=== PATIENT | female | born 1950 | race African-American/Black ===

== ENCOUNTER → 2016-06-30 | Outpatient (CLI) | payer MEDICARE, MEDICAID ==
[~2016-06-30] MED LIST: B50 PO; CLOB20TA PO; LACO200T2 PO; MIRT-91 PO; PHEN32.418 PO; PHENYTOIN PO; ZYPREXA PO
== END | disposition home or self-care (01) ==
LOC: CARD 08:55
PROVIDERS: ATTEND Psychiatry & Neurology Neurology
DX: G40.319 Generalized idiopathic epilepsy and epileptic syndromes, intractable, without status epilepticus (principal)

== ENCOUNTER 2018-02-05 12:39 | Inpatient (IN) | payer MEDICARE, MEDICAID ==
[~2018-02-05] VITALS: Ht 175.3 cm; Wt 60.8 kg
[~2018-02-05 12:39] MED LIST changes: -PHEN32.418 PO; +PHEN32.43 PO
[2018-02-05] MEDS ORDERED: SODIUM CHLORIDE 0.9% 1,000 ML IV ONE (13:00)
[2018-02-05] MEDS ORDERED: HALOPERIDOL LACTATE 5MG/ML VIAL IM ONE ×2 (15:00→16:15)
[2018-02-05 15:16] LABS: BASOPHILS % 0.9 % (0.0-2.0); EOSINOPHILS % 3.4 % (0.0-5.0); HEMATOCRIT. 36.2 % (36.0-48.0); HEMOGLOBIN. 11.6 g/dL (12.0-16.0); MEAN CORPUSCULAR HEMOGLOBIN 27.9 pg (28.0-32.0); MEAN CORPUSCULAR VOLUME 86.7 fL (81.0-99.0); MONOCYTES % 7.9 % (2.0-8.0); NEUTROPHILS % 55.8 % (40.0-76.0); PLATELET 121 x1000/uL (130-400); RED BLOOD CELL COUNT 4.17 mill/uL (4.2-5.4); RED CELL DISTRIBUTION WIDTH 15.9 % (11.6-14.6)
[2018-02-05 15:20] LABS: CHLORIDE 119 mEq/L (98-107); INR 1.1; PROTHROMBIN TIME 11.5 sec (9.1-11.1)
[2018-02-05 15:24] LABS: ETHANOL BLOOD < 10 mg/dL
[2018-02-05 15:45] LABS: CREATINE KINASE 242 IU/L (26-192)
[2018-02-05 16:34] LABS: CLARITY URINE CLEAR (CLEAR); COLOR URINE YELLOW (YELLOW); KETONES URINE NEGATIVE (NEGATIVE); LEUKOCYTE ESTERASE URINE NEGATIVE (NEGATIVE); NITRITE URINE NEGATIVE (NEGATIVE); OCCULT BLOOD URINE NEGATIVE (NEGATIVE); PH URINE 5.5 (4.5-8.0); PROTEIN URINE NEGATIVE (NEGATIVE); SPECIFIC GRAVITY URINE 1.025 (1.005-1.030); UROBILINOGEN URINE 0.2 E.U./dL (0.2-1.0)
[2018-02-05 16:46] LABS: *AMPHETAMINES SCREEN URINE NEGATIVE (NEGATIVE); *BARBITURATES SCREEN URINE NEGATIVE (NEGATIVE); *BENZODIAZEPINES SCREEN URINE NEGATIVE (NEGATIVE); *COCAINE SCREEN URINE NEGATIVE (NEGATIVE); CANNABINOID URINE SCREEN NEGATIVE (NEGATIVE); PHENCYCLIDINE URINE SCREEN NEGATIVE (NEGATIVE)
[2018-02-05 16:47] LABS: METHADONE URINE SCREEN NEGATIVE (NEGATIVE); OPIATES URINE SCREEN NEGATIVE (NEGATIVE)
[2018-02-05] MEDS ORDERED: ONDANSETRON HCL 4MG/2ML INJ IV PRN (20:30)
[2018-02-05] MEDS ORDERED: LORAZEPAM 2MG/ML CPJ IV PRN (20:30)
[2018-02-05] MEDS ORDERED: CLONIDINE 0.1MG TABLET PO PRN (20:30)
[2018-02-05] MEDS ORDERED: MAGNESIUM/ALUMINUM HYDROXIDE/SIMETHICONE 30ML UDC PO PRN (20:30)
[2018-02-05] MEDS ORDERED: DIPHENHYDRAMINE 50MG/ML VIAL IV PRN (20:30)
[2018-02-05] MEDS ORDERED: ACETAMINOPHEN 325MG TABLET PO PRN (20:30)
[2018-02-05] MEDS ORDERED: IPRATROPIUM/ALBUTEROL 0.5-3(2.5)MG/3ML NEB INH PRN (20:30)
[2018-02-05 21:50] VITALS: BP 127/78
[2018-02-05] MEDS: DIVALPROEX SODIUM 250MG DR TABLET PO SCH (22:07)
[2018-02-05] MEDS: MIRTAZAPINE 15MG TABLET PO SCH (22:07)
[2018-02-05] MEDS: TOPIRAMATE 25MG TABLET PO SCH (22:07)
[2018-02-06] VITALS: BP 112/68
[2018-02-06] MEDS: SODIUM CHLORIDE 0.9% INJ 3ML FLUSH IVF SCH ×4 (00:45→22:00)
[2018-02-06] MEDS: OLANZAPINE 10 MG/VIAL IM SCH ×2 (00:45→21:00)
[2018-02-06] MEDS: IPRATROPIUM/ALBUTEROL 0.5-3(2.5)MG/3ML NEB HHN SCH ×2 (01:10→21:07)
[2018-02-06] MEDS ORDERED: LORA10CA MT (02:47)
[2018-02-06] MEDS ORDERED: DIVA-73 MT (02:47)
[2018-02-06] MEDS ORDERED: CALC-769 MT (02:47)
[2018-02-06] MEDS ORDERED: [UNRECOGNIZED DRUG - CODE] MT (02:47)
[2018-02-06] MEDS ORDERED: LACO100T2 MT (02:47)
[2018-02-06] MEDS ORDERED: MIRT15TA MT (02:47)
[2018-02-06] MEDS ORDERED: LIPA1CAP18 MT (02:47)
[2018-02-06] MEDS ORDERED: DIPH25CA83 MT (02:47)
[2018-02-06] MEDS ORDERED: TOPI50TA24 MT (02:47)
[2018-02-06 04:45] VITALS: BP 97/61
[2018-02-06 07:58] VITALS: BP 112/67
[2018-02-06] MEDS: TOPIRAMATE 25MG TABLET PO SCH ×2 (09:24→21:35)
[2018-02-06] MEDS: CHOLECALCIFEROL (VIT D3) 400 UNIT TABLET PO SCH (09:24)
[2018-02-06] MEDS: LIPASE/PROTEASE/AMYLASE 4,200/14,200/24,600 UNITS CAP DR PO SCH ×3 (09:25→17:59)
[2018-02-06] MEDS: DIVALPROEX SODIUM 250MG DR TABLET PO SCH ×2 (09:25→22:15)
[2018-02-06] MEDS: CALCIUM CARBONATE 1250MG TABLET (500MG ELEMENTAL CALCIUM) PO SCH (09:25)
[2018-02-06 12:08] VITALS: BP 120/70
[2018-02-06] MEDS: THIAMINE HCL 100MG TABLET PO SCH ×2 (12:59→17:59)
[2018-02-06] MEDS ORDERED: NON FORMULARY PATIENT HOME MED EA XX SCH (15:00)
[2018-02-06 15:46] VITALS: BP 127/69
[2018-02-06] MEDS: PENICILLIN V POTASSIUM 250MG TABLET PO SCH ×2 (16:47→18:00)
[2018-02-06 20:00] VITALS: BP 127/67
[2018-02-06] MEDS ORDERED: LACOSAMIDE 200 MG TABLET (VIMPAT) PO SCH (21:00)
[2018-02-06] MEDS: PHENYTOIN SODIUM EXTENDED 100MG CAPSULE PO SCH (21:34)
[2018-02-06] MEDS: MIRTAZAPINE 15MG TABLET PO SCH (21:35)
[2018-02-06] MEDS: LACOSAMIDE 200 MG TABLET (VIMPAT) PO SCH (23:20)
[2018-02-07] VITALS: BP 126/81
[2018-02-07] MEDS: IPRATROPIUM/ALBUTEROL 0.5-3(2.5)MG/3ML NEB HHN SCH ×4 (02:02→21:28)
[2018-02-07 04:00] VITALS: BP 129/74
[2018-02-07] MEDS: SODIUM CHLORIDE 0.9% INJ 3ML FLUSH IVF SCH ×3 (06:00→21:40)
[2018-02-07] MEDS: PENICILLIN V POTASSIUM 250MG TABLET PO SCH ×3 (06:04→13:48)
[2018-02-07 08:25] VITALS: BP 111/70
[2018-02-07] MEDS: TOPIRAMATE 25MG TABLET PO SCH ×2 (10:29→21:39)
[2018-02-07] MEDS: LIPASE/PROTEASE/AMYLASE 4,200/14,200/24,600 UNITS CAP DR PO SCH ×2 (10:29→13:48)
[2018-02-07] MEDS: LACOSAMIDE 200 MG TABLET (VIMPAT) PO SCH ×2 (10:29→21:39)
[2018-02-07] MEDS: CHOLECALCIFEROL (VIT D3) 400 UNIT TABLET PO SCH (10:29)
[2018-02-07] MEDS: THIAMINE HCL 100MG TABLET PO SCH (10:30)
[2018-02-07] MEDS: DIVALPROEX SODIUM 250MG DR TABLET PO SCH ×2 (10:30→21:39)
[2018-02-07] MEDS: CALCIUM CARBONATE 1250MG TABLET (500MG ELEMENTAL CALCIUM) PO SCH (10:30)
[2018-02-07 12:56] VITALS: BP 115/73
[2018-02-07 17:22] VITALS: BP 104/65
[2018-02-07] MEDS ORDERED: PHENYTOIN SODIUM EXTENDED 100MG CAPSULE PO NR (17:45)
[2018-02-07 20:00] VITALS: BP 105/67
[2018-02-07] MEDS: OLANZAPINE 10 MG/VIAL IM SCH (21:38)
[2018-02-07] MEDS: PHENYTOIN SODIUM EXTENDED 100MG CAPSULE PO SCH (21:39)
[2018-02-07] MEDS: MIRTAZAPINE 15MG TABLET PO SCH (21:39)
[2018-02-08] VITALS: BP 105/64
[2018-02-08] MEDS: THIAMINE HCL 100MG TABLET PO SCH ×2 (00:14→08:43)
[2018-02-08] MEDS: IPRATROPIUM/ALBUTEROL 0.5-3(2.5)MG/3ML NEB HHN SCH ×3 (01:55→15:35)
[2018-02-08 04:00] VITALS: BP 107/66
[2018-02-08] MEDS: SODIUM CHLORIDE 0.9% INJ 3ML FLUSH IVF SCH ×2 (06:42→14:00)
[2018-02-08] MEDS: PENICILLIN V POTASSIUM 250MG TABLET PO SCH ×3 (06:42→12:44)
[2018-02-08 08:00] VITALS: BP 107/74
[2018-02-08] MEDS: LIPASE/PROTEASE/AMYLASE 4,200/14,200/24,600 UNITS CAP DR PO SCH ×3 (08:10→13:10)
[2018-02-08] MEDS: CHOLECALCIFEROL (VIT D3) 400 UNIT TABLET PO SCH (08:43)
[2018-02-08] MEDS: CALCIUM CARBONATE 1250MG TABLET (500MG ELEMENTAL CALCIUM) PO SCH (08:43)
[2018-02-08] MEDS: TOPIRAMATE 25MG TABLET PO SCH (08:43)
[2018-02-08] MEDS: LACOSAMIDE 200 MG TABLET (VIMPAT) PO SCH (08:43)
[2018-02-08] MEDS: DIVALPROEX SODIUM 250MG DR TABLET PO SCH (08:43)
[2018-02-08 12:00] VITALS: BP 105/67
[2018-02-08 15:52] VITALS: BP 105/60
[2018-02-08 16:00] VITALS: BP 112/65
[2018-02-08] MEDS ORDERED: PHENYTOIN SODIUM EXTENDED 100MG CAPSULE PO NR (17:00)
== END 2018-02-08 17:10 | disposition home or self-care (01) | DRG 101 ==
LOC: ER 12:39 → 7WST 15:52 → EDBEDREQ 15:57 → ENRESERV 19:39
PROVIDERS: ADMIT Internal Medicine; ATTEND Internal Medicine
PROC: 4A10X4Z Monitoring of Central Nervous Electrical Activity, External Approach (ICD-10-PCS; principal; 2018-02-08)
DX: G40.419 Other generalized epilepsy and epileptic syndromes, intractable, without status epilepticus (principal); F31.9 Bipolar disorder, unspecified; K86.89 Other specified diseases of pancreas; F17.210 Nicotine dependence, cigarettes, uncomplicated; Z88.6 Allergy status to analgesic agent; Z79.899 Other long term (current) drug therapy
CPT/HCPCS: 36415; 71045; 80165; 80185; 80305; 80339; 82140; 82550; 82962; 93005; 93970; 96360; 96361; 96372; 97162; 99285; G0482; J1630; J2060; J3490; J7030; J7620; A4315

== ENCOUNTER → 2018-05-31 | Outpatient (CLI) | payer MEDICARE, MEDICAID ==
[~2018-05-31] MED LIST changes: -B50 PO; +CALC-769 MT; -CLOB20TA PO; +DIPH25CA83 MT; +DIVA-73 MT; +LACO100T2 MT; -LACO200T2 PO; +LIPA1CAP18 MT; +LORA10CA MT; -MIRT-91 PO; +MIRT15TA MT; -PHEN32.43 PO; -PHENYTOIN PO; +TOPI50TA24 MT; -ZYPREXA PO; +[UNRECOGNIZED DRUG - CODE] MT
== END | disposition home or self-care (01) ==
LOC: CARD 09:00
PROVIDERS: ATTEND Psychiatry & Neurology Neurology
DX: G40.319 Generalized idiopathic epilepsy and epileptic syndromes, intractable, without status epilepticus (principal)

== ENCOUNTER 2025-01-12 08:32 | Emergency (ER) | payer MEDICARE, MEDICAID ==
[~2025-01-12] VITALS: Ht 167.6 cm; Wt 89.0 kg
[~2025-01-12 08:32] MED LIST changes: +AMYL1CAP MT; +CHOL400D7 PO; +DEPSPR MT; +DIVA-156 MT; -DIVA-73 MT; +DONE10TA43 PO; +ESCI-7 PO; +FERR325T6 PO; +LACO200T4; +MIRT-144 MT; -MIRT15TA MT; +OLAN7.5T50 MT; +QUET100T MT; +QUET50TA23 PO; +TOPI-95 MT; -TOPI50TA24 MT; +VITA400T9 PO; -[UNRECOGNIZED DRUG - CODE] MT
[2025-01-12 08:42] VITALS: O2SAT 96
[2025-01-12] MEDS: LIDOCAINE HCL 1% 20ML VIAL INFIL ONE (10:27)
[2025-01-12] MEDS: TETANUS, DIPHTHERIA, PERTUSSIS VAC/PF 0.5ML (>10YR OLD) IM ONE (10:40)
[2025-01-12] MEDS ORDERED: AMOX1TAB16 MT (10:53)
[2025-01-12 12:01] VITALS: BP 150/72; PULSE 70; RESP 15; TEMP 36.7; O2SAT 96
== END 2025-01-12 12:02 | disposition home or self-care (01) ==
LOC: ER 08:32
DX: S01.311A Laceration without foreign body of right ear, initial encounter (principal); F20.9 Schizophrenia, unspecified; F31.9 Bipolar disorder, unspecified; D64.9 Anemia, unspecified; Z98.890 Other specified postprocedural states; Z79.899 Other long term (current) drug therapy; Z88.5 Allergy status to narcotic agent; W06.XXXA Fall from bed, initial encounter; Y93.89 Activity, other specified; Y92.89 Other specified places as the place of occurrence of the external cause; Y99.8 Other external cause status
CPT/HCPCS: 99285; 70450; 72125; 90715; 12011; 90471; J2003

== ENCOUNTER 2025-01-14 08:14 | Emergency (ER) | payer MEDICARE, MEDICAID ==
[~2025-01-14] VITALS: Ht 167.6 cm; Wt 54.0 kg
[~2025-01-14 08:14] MED LIST changes: +AMOX1TAB16 MT
[2025-01-14 08:22] VITALS: O2SAT 100
[2025-01-14 08:30] VITALS: BP 131/71; PULSE 81; RESP 18; TEMP 36.8; O2SAT 98
[2025-01-14] MEDS ORDERED: AMOX1TAB16 MT (10:07)
== END 2025-01-14 11:07 | disposition home or self-care (01) ==
LOC: ER 09:28
DX: S01.311D Laceration without foreign body of right ear, subsequent encounter (principal); F20.9 Schizophrenia, unspecified; F31.9 Bipolar disorder, unspecified; F03.93 Unspecified dementia, unspecified severity, with mood disturbance; Z88.5 Allergy status to narcotic agent; Z79.899 Other long term (current) drug therapy; X58.XXXD Exposure to other specified factors, subsequent encounter
CPT/HCPCS: 99283